=== PATIENT | male | born 1950 | race Caucasian/White ===

== ENCOUNTER 2021-11-18 20:07 | Inpatient (IN) ==
[2021-11-19] MEDS ORDERED: Ondansetron 4 mg VIAL 2 MG/ML 2 ml VIAL IV PRN (04:36)
[2021-11-19 05:01] LABS: ABS Basophils 0.1 10^3/ul (0-0.2); ABS Eosinophils 0.1 10^3/ul (0-0.6); ABS Lymphocytes 1.7 10^3/ul (1.0-4.8); ABS Monocytes 0.6 10^3/ul (0-0.8); ABS Neutrophils 4.6 10^3/ul (1.5-7.7); Eosinophil % 0.8 %; Hematocrit 22 % (42-52); Lymphocyte % 24.2 %; Mean Corpuscular HGB Conc 32 g/dL (31-36); Mean Corpuscular Hemoglobin 29 pg (27-31); Mean Corpuscular Volume 89 fL (80-94); Mean Platelet Volume 7.5 fL (7.4-10.4); Platelet Count 218 10^3/uL (150-450); Red Blood Count 2.46 10^6 /uL (4.18-5.48); Red Cell Distribution Width 17 % (10-15)
[2021-11-19] MEDS: NS 0.9% 1000 ml BAG 1,000 ML IV SCH ×2 (05:12→14:23)
[2021-11-19 05:40] LABS: Albumin 3.5 g/dL (3.2-5.2); Albumin/Globulin Ratio 1.9 (1-3); Calcium 8.3 mg/dL (8.6-10.3); Globulin 1.8 g/dL (2-4); Magnesium 2.2 mg/dL (1.9-2.7); Potassium 4.3 mmol/L (3.5-5.0); Total Bilirubin 0.5 mg/dL (0.2-1.0); Total Protein 5.3 g/dL (6.4-8.9)
[2021-11-19] MEDS ORDERED: Lactated Ringers 1000 ml BAG 1,000 ML IV ONE (07:06)
[2021-11-19] MEDS: CMCS:FLUTICAS/UMECLI/VILANT 200-62.5-25 MDI (NF) INH SCH ×2 (07:18→07:46)
[2021-11-19] MEDS: Levalbuterol HFA INHALER MDI INH PRN ×2 (07:46→21:05)
[2021-11-19 07:54] LABS: High Sensitivity Troponin 1 Hr 14 pg/mL (<20)
[2021-11-19] MEDS: Pantoprazole VIAL 40 MG VIAL IV SCH ×2 (10:07→20:32)
[2021-11-19 12:59] LABS: Hematocrit 26 % (42-52); Hemoglobin 8.3 g/dL (14.0-18.0)
[2021-11-19 23:35] LABS: Hematocrit 28 % (42-52); Hemoglobin 8.9 g/dL (14.0-18.0)
[2021-11-20] MEDS: Levalbuterol HFA INHALER MDI INH PRN ×5 (01:21→20:30)
[2021-11-20] MEDS: NS 0.9% 1000 ml BAG 1,000 ML IV SCH (01:57)
[2021-11-20 08:05] LABS: ABS Eosinophils 0.1 10^3/ul (0-0.6); ABS Lymphocytes 1.1 10^3/ul (1.0-4.8); ABS Monocytes 0.6 10^3/ul (0-0.8); ABS Neutrophils 6.4 10^3/ul (1.5-7.7); Eosinophil % 1.1 %; Hematocrit 25 % (42-52); Lymphocyte % 13.2 %; Mean Corpuscular HGB Conc 32 g/dL (31-36); Mean Corpuscular Hemoglobin 29 pg (27-31); Mean Corpuscular Volume 88 fL (80-94); Mean Platelet Volume 7.7 fL (7.4-10.4); Platelet Count 208 10^3/uL (150-450); Red Cell Distribution Width 17 % (10-15); White Blood Count 8.3 10^3/uL (3.5-10.8)
[2021-11-20] MEDS ORDERED: Furosemide 40 mg/4 ml IV VIAL IV ONE (08:22)
[2021-11-20] MEDS: CMCS:FLUTICAS/UMECLI/VILANT 200-62.5-25 MDI (NF) INH SCH (08:41)
[2021-11-20 08:57] LABS: Calcium 7.8 mg/dL (8.6-10.3); Potassium 4.2 mmol/L (3.5-5.0); eGFR CKD-EPI 63.8 (>60)
[2021-11-20] MEDS: Pantoprazole VIAL 40 MG VIAL IV SCH (09:30)
[2021-11-20] MEDS ORDERED: fentaNYL 100 mcg/2 ml 50 MCG/ML VIAL ONE (11:30)
[2021-11-20] MEDS ORDERED: Midazolam 10 mg/10 ml VIAL 1 mg/ml 10 ml VIAL (10 mg) ONE (11:30)
[2021-11-20] MEDS ORDERED: PEG 3000 GI LAVAGE 1 GALLON PO ONE (13:02)
[2021-11-20 14:12] LABS: Hematocrit 28 % (42-52); Hemoglobin 8.7 g/dL (14.0-18.0)
[2021-11-20 20:08] LABS: Hematocrit 29 % (42-52); Hemoglobin 9.1 g/dL (14.0-18.0)
[2021-11-21] MEDS: Levalbuterol HFA INHALER MDI INH PRN ×2 (01:34→07:13)
[2021-11-21 03:09] LABS: Hematocrit 25 % (42-52); Hemoglobin 8.2 g/dL (14.0-18.0)
[2021-11-21 06:17] LABS: ABS Basophils 0.1 10^3/ul (0-0.2); ABS Eosinophils 0.1 10^3/ul (0-0.6); ABS Lymphocytes 1.7 10^3/ul (1.0-4.8); ABS Monocytes 0.6 10^3/ul (0-0.8); Hematocrit 27 % (42-52); Hemoglobin 8.7 g/dL (14.0-18.0); Lymphocyte % 22.7 %; Mean Corpuscular HGB Conc 32 g/dL (31-36); Mean Corpuscular Hemoglobin 29 pg (27-31); Mean Corpuscular Volume 89 fL (80-94); Mean Platelet Volume 7.6 fL (7.4-10.4); Platelet Count 207 10^3/uL (150-450); Red Blood Count 3.05 10^6 /uL (4.18-5.48); Red Cell Distribution Width 17 % (10-15); White Blood Count 7.5 10^3/uL (3.5-10.8)
[2021-11-21 06:43] LABS: Blood Urea Nitrogen 16 mg/dL (6-24); CO2 Carbon Dioxide 24 mmol/L (22-32); Chloride 109 mmol/L (101-111); Glucose 97 mg/dL (70-100); Magnesium 2.2 mg/dL (1.9-2.7); Sodium 142 mmol/L (135-145); eGFR CKD-EPI 59.1 (>60)
[2021-11-21 06:52] LABS: Anion Gap 9 mmol/L (2-11)
[2021-11-21] MEDS: CMCS:FLUTICAS/UMECLI/VILANT 200-62.5-25 MDI (NF) INH SCH (07:12)
[2021-11-21] MEDS: Pantoprazole VIAL 40 MG VIAL IV SCH (09:00)
[2021-11-21] MEDS ORDERED: Midazolam 10 mg/10 ml VIAL 1 mg/ml 10 ml VIAL (10 mg) ONE (14:55)
[2021-11-21] MEDS ORDERED: fentaNYL 100 mcg/2 ml 50 MCG/ML VIAL ONE (14:55)
[2021-11-21 20:57] LABS: Hematocrit 23 % (42-52); Hemoglobin 7.9 g/dL (14.0-18.0)
[2021-11-21] MEDS ORDERED: Furosemide 40 mg/4 ml IV VIAL IV SLOW PU ONE (21:04)
[2021-11-22 06:22] LABS: ABS Basophils 0.1 10^3/ul (0-0.2); ABS Eosinophils 0.3 10^3/ul (0-0.6); ABS Lymphocytes 1.3 10^3/ul (1.0-4.8); ABS Monocytes 0.6 10^3/ul (0-0.8); ABS Neutrophils 5.9 10^3/ul (1.5-7.7); Eosinophil % 3.8 %; Hematocrit 29 % (42-52); Hemoglobin 9.4 g/dL (14.0-18.0); Lymphocyte % 15.8 %; Mean Corpuscular HGB Conc 33 g/dL (31-36); Mean Corpuscular Hemoglobin 29 pg (27-31); Mean Corpuscular Volume 88 fL (80-94); Mean Platelet Volume 7.4 fL (7.4-10.4); Platelet Count 218 10^3/uL (150-450); Red Blood Count 3.26 10^6 /uL (4.18-5.48); Red Cell Distribution Width 16 % (10-15); White Blood Count 8.2 10^3/uL (3.5-10.8)
[2021-11-22 06:47] LABS: Calcium 8.1 mg/dL (8.6-10.3); Magnesium 2.2 mg/dL (1.9-2.7); Potassium 3.8 mmol/L (3.5-5.0); eGFR CKD-EPI 44.4 (>60)
[2021-11-22] MEDS: Levalbuterol HFA INHALER MDI INH PRN (07:54)
[2021-11-22] MEDS: CMCS:FLUTICAS/UMECLI/VILANT 200-62.5-25 MDI (NF) INH SCH (07:54)
[2021-11-22] MEDS: Pantoprazole VIAL 40 MG VIAL IV SCH (09:09)
[2021-11-22] MEDS ORDERED: methylPREDNISolone SOD SUCC 40 mg/ml 1 ml VIAL IV ONE (11:04)
[2021-11-22 12:52] VITALS: BP 103/47
== END 2021-11-22 15:27 | disposition home or self-care (01) | DRG 394 ==
LOC: MEDTELE 11-19 04:12 → INTOOBSV 11-19 04:12 → SUATTDRO 11-19 04:36
PROVIDERS: ADMIT Internal Medicine; ATTEND Hospitalist